=== PATIENT | female | born 1960 | race Caucasian/White ===

== ENCOUNTER 2020-08-05 20:32 | Emergency (ER) | payer MEDICAID ==
[2020-08-05] MEDS ORDERED: BACIGUENT PACKET TP ONE (21:00)
[2020-08-05] MEDS ORDERED: Adacel Vial IM ONE ×2 (21:00→21:02)
[2020-08-05] MEDS ORDERED: BACIGUENT PACKET ONE (21:01)
--- NOTE | 2020-08-05 21:04 | ERPHSYRPT ---
- History of Present Illness Time Seen by Provider: 08/05/20 20:45 Source: patient Exam Limitations: no limitations Patient Subjective Stated Complaint: laceration to left forearm Triage Nursing Assessment: Pt. was using a knife to cut up califlower and the veggie slipped and the knife cut her left forearm just above her infinity symbol with angle wings tattoo. currently bleeding, has been placing pressure on it. Happend 30min prior to coming in but couldnt get it stop. Physician History: Patient is a 60-year-old female presents to our ED for evaluation of laceration to the distal third of her left forearm. Laceration is 4 cm in length. Injury occurred approximately 30 minutes prior to arrival. Patient was cutting cauliflower with a knife when the knife slipped. Tetanus is not up-to-date. Pain is minimal. No other injuries reported. Symptoms are mild to moderate in intensity. Patient not concerned with foreign body. Extremity neurovascular intact distally. Hemostasis achieved with direct pressure. Patient is otherwise healthy. She voices no other complaints or concerns at this time. Timing/Duration: today Severity: moderate Modifying Factors: Improves With: nothing Associated Symptoms: denies symptoms Allergies/Adverse Reactions: No Known Allergies Allergy (Unverified 12/06/11 20:07) Home Medications: No Home Meds [No Home Meds] 12/07/11 [History] Hx Tetanus, Diphtheria Vaccination/Date Given: No (tetanus needs updated) Hx Influenza Vaccination/Date Given: No Hx Pneumococcal Vaccination/Date Given: No Immunizations Up to Date: Yes Travel Risk - International Travel Have you traveled outside of the country in past 3 weeks: No - Coronavirus Screening Are you exhibiting any of the following symptoms?: No - Review of Systems Constitutional: No Symptoms, No Fever, No Chills Eyes: No Symptoms Ears, Nose, & Throat: No Symptoms Respiratory: No Symptoms, No Cough, No Dyspnea Cardiac: No Symptoms, No Chest Pain, No Edema, No Syncope Abdominal/Gastrointestinal: No Symptoms, No Abdominal Pain, No Nausea, No Vomiting, No Diarrhea Genitourinary Symptoms: No Symptoms, No Dysuria Musculoskeletal: No Symptoms, No Back Pain, No Neck Pain Skin: No Symptoms, No Rash Neurological: No Symptoms, No Dizziness, No Focal Weakness, No Sensory Changes Psychological: No Symptoms Endocrine: No Symptoms Hematologic/Lymphatic: No Symptoms Immunological/Allergic: No Symptoms All Other Systems: Reviewed and Negative - Past Medical History Pertinent Past Medical History: No Neurological History: No Pertinent History ENT History: No Pertinent History Cardiac History: No Pertinent History Respiratory History: No Pertinent History Endocrine Medical History: No Pertinent History Musculoskeletal History: No Pertinent History GI Medical History: No Pertinent History History: No Pertinent History Psycho-Social History: No Pertinent History Female Reproductive Disorders: No Pertinent History - Past Surgical History Past Surgical History: Yes Neuro Surgical History: No Pertinent History Cardiac: No Pertinent History Respiratory: No Pertinent History Gastrointestinal: Cholecystectomy Female Surgical History: Hysterectomy, Section Other Surgical History: Unknown lung procedure, tonsillectomy - Social History Smoking Status: Current every day smoker How long have you smoked: 40 years Exposure to second hand smoke: No Drug Use: none Patient Lives Alone: No - Female History Hx Last Menstrual Period: n - Nursing Vital Signs Nursing Vital Signs: Initial Vital Signs Pulse Rate 75 08/05/20 20:40 Respiratory Rate 18 08/05/20 20:40 Blood Pressure 96/70 08/05/20 20:40 O2 Sat by Pulse Oximetry 922 H 08/05/20 20:40 Pain Scale Pain Intensity 0 - Physical Exam General Appearance: no apparent distress, alert Eye Exam: PERRL/EOMI, eyes nml inspection Ears, Nose, Throat Exam: normal ENT inspection, TMs normal, pharynx normal, moist mucous membranes Neck Exam: normal inspection, non-tender, supple, full range of motion Respiratory Exam: normal breath sounds, lungs clear, No respiratory distress Cardiovascular Exam: regular rate/rhythm, normal heart sounds, normal peripheral pulses Gastrointestinal/Abdomen Exam: soft, normal bowel sounds, No tenderness, No mass Back Exam: normal inspection, normal range of motion, No CVA tenderness, No vertebral tenderness Extremity Exam: normal inspection, normal range of motion, pelvis stable Neurologic Exam: alert, oriented x 3, cooperative, normal mood/affect, nml cerebellar function, nml station & gait, sensation nml, No motor deficits Skin Exam: normal color, warm, dry, No rash Lymphatic Exam: No adenopathy SpO2 Interpretation: normal SpO2: 92 O2 Delivery: Room Air Procedures - Laceration/Wound Repair Left Distal Arm Wound Location: Left (Left distal forearm at the anteromedial surface.) Wound Length (cm): 4 Wound's Depth, Shape: linear, into subcut Wound Explored: clean Irrigated: Yes Hibiclens Prep: Yes Anesthesia: local, 1% Lidocaine Volume Anesthetic (ccs): 4 Wound Debrided: Necessary. Wound Repaired With: sutures Suture Size/Type: 4-0, nylon Number of Sutures: 6 Layer Closure?: No Sterile Dressing Applied?: Yes Splint Applied?: No Sling Applied?: Yes Progress: 08/05/20 21:05 Extremity neurovascular intact distally post procedure. - Course Nursing assessment & vital signs reviewed: Yes - Progress Progress: improved Progress Note: 08/05/20 21:05 Tetanus updated. Wound closure performed via simple interrupted suture using 4- 0 nylon. 6 sutures placed. Extremity neurovascular intact distally post procedure. Sterile bulky dressing applied with left upper extremity sling. Patient agrees to follow-up with her primary care doctor within 48 hours for reevaluation. Patient voices no other complaints at this time. Patient states is ready for discharge. Counseled pt/family regarding: diagnosis, need for follow-up, rad results, smoking cessation - Departure Departure Disposition: Home Clinical Impression: Laceration Condition: Stable Critical Care Time: No Referrals: EDDIE BAUM [Primary Care Provider] - Instructions: Laceration Repair With Stitches (DC), Wound Care (DC) Additional Instructions: Discharge/Care Plan DEANN SANDOVAL was seen on 08/05/20 in the Emergency Room. The patient was counseled regarding Diagnosis,Lab results, Imaging studies, need for follow up and when to return to the Emergency Room. Prescriptions given: Discharge Note I have spoken with the patient and/or caregivers. I have explained the patient's condition, diagnosis and treatment plan based on the information available to me at this time. I have answered the patient's and/or caregiver's questions and addressed any concerns. The patient and/or caregivers have as good understanding of the patient's diagnosis, condition and treatment plan as can be expected at this point. The vital signs have been stable. The patient's condition is stable and appropriate for discharge from the emergency department. The patient will pursue further outpatient evaluation with the primary care physician or other designated or consulting physician as outlined in the discharge instructions. The patient and/or caregivers are agreeable to this plan of care and follow-up instructions have been explained in detail. The patient and/or caregivers have received these instruction. The patient/and or caregivers are aware that any significant change in condition or worsening of symptoms should prompt an immediate return to this or the closest emergency department or call 911. Prescriptions: Cephalexin Mh 500 mg [Keflex 500 mg] 500 mg PO TID 7 Days #21 capsule
[2020-08-05 21:19] VITALS: BP 104/70; PULSE 66; O2SAT 92
== END 2020-08-05 21:15 | disposition home or self-care (01) ==
LOC: ED 20:32
DX: S51.812A Laceration without foreign body of left forearm, initial encounter (principal); W26.0XXA Contact with knife, initial encounter
CPT/HCPCS: 12002; 90471; 90715; 99283; A9270-GY